=== PATIENT | male | born 1955 | race Caucasian/White ===

== ENCOUNTER 2019-10-22 08:39 | Day surgery (SDC) | payer MEDICARE, MEDICAID ==
[~2019-10-22] VITALS: Ht 175.3 cm; Wt 98.9 kg
[~2019-10-22 08:39] MED LIST: HYDR-3973 PO; LAMO200T10 PO; LITH150C8 PO; LITH300C PO; OMEP-50 PO; TRAZ-256 PO; albuterol 2.5 MG/3 ML nebule NEB ONE; clindamycin-Cleocin 900mg/D5W 50 ML IV ONE; famotidine 20mg tablet PO ONE; ringers solution, lacted 1,000 ML IV SCH
[2019-10-22 08:50] VITALS: BP 119/80
[2019-10-22 10:04] LABS: BASOPHILS % (AUTO) 0.1 % (0-1); EOSINOPHILS # (AUTO) 0.3 X10'3 (0-0.9); EOSINOPHILS % (AUTO) 2.8 % (0-6); LYMPHOCYTES # (AUTO) 4.1 X10'3 (1.1-4.8); LYMPHOCYTES % (AUTO) 43.1 % (21-51); MEAN CORPUSCULAR HEMOGLOBIN 30.4 PG (27.0-31.0); MEAN CORPUSCULAR HGB CONC 34.2 g/dL (33.0-36.5); MEAN CORPUSCULAR VOLUME 88.8 FL (78-98); MEAN PLATELET VOLUME 9.5 FL (7.4-10.4); MONOCYTES # (AUTO) 0.6 X10'3 (0-0.9); NEUTROPHILS # (AUTO) 4.6 X10'3 (1.8-7.7); PRE OP HEMOGLOBIN 15.4 g/dL (14.0-17.9); PRE OP PLATELET COUNT 139 X10'3 (140-440); RED BLOOD COUNT 5.07 X10'6 (4.70-6.10); RED CELL DISTRIBUTION WIDTH 14.5 % (11.5-14.5)
[2019-10-22 10:32] LABS: ALBUMIN 3.7 G/DL (3.4-5.0); ALBUMIN/GLOBULIN RATIO 1.1 (1.1-1.5); ALKALINE PHOSPHATASE 73 IU/L (46-116); BLOOD UREA NITROGEN 5 MG/DL (7-18); BUN/CREATININE RATIO 6.1 (5.4-32.0); CALCIUM 8.9 MG/DL (8.5-10.1); CHLORIDE 112 MMOL/L (99-107); CREATININE 0.82 MG/DL (0.60-1.10); PRE OP ALT 58 U/L (30-65); PRE OP AST 24 U/L (10-37); PRE OP BILIRUB, TOTAL 0.5 MG/DL (0.0-1.0); PRE OP GLUCOSE 111 MG/DL (70-104); TOTAL CARBON DIOXIDE 24.3 MMOL/L (24-32); eGFR > 90 ML/MIN
[2019-10-22 10:34] LABS: PRE OP ANION GAP 8 (8-16); PRE OP SODIUM 144 MMOL/L (135-145)
[2019-10-22] MEDS ORDERED: BUPIVAcaine/PF 2.5mg/ml (0.25%) 10ml vial ONE (12:54)
--- NOTE | 2019-10-22 13:05 | NUR ---
PT DECIDED TO LEAVE AND RESCHEDULE SURGERY DUE TO DELAY IN START TIME STATING HIS CANNOT DRIVE IN THE DARK.
== END 2019-10-22 13:08 | disposition home or self-care (01) ==
LOC: PAS 08:39
PROVIDERS: ATTEND Orthopaedic Surgery
DX: G56.02 Carpal tunnel syndrome, left upper limb (principal); Z53.8 Procedure and treatment not carried out for other reasons; Z88.0 Allergy status to penicillin
CPT/HCPCS: 36415; 80053; 85025; J3490; J7120

== ENCOUNTER 2020-08-20 12:30 | Day surgery (SDC) | payer MEDICARE, MEDICAID ==
[2020-08-20] VITALS (11 sets, daily range): BP systolic 113–144; BP diastolic 64–89
[~2020-08-20] VITALS: Ht 175.3 cm; Wt 95.7 kg
[~2020-08-20 12:30] MED LIST changes: -albuterol 2.5 MG/3 ML nebule NEB ONE; -clindamycin-Cleocin 900mg/D5W 50 ML IV ONE; -famotidine 20mg tablet PO ONE; -ringers solution, lacted 1,000 ML IV SCH
[2020-08-20] MEDS ORDERED: nitroGLYCERIN 0.4mg SUBLingual tab SL PRN (13:05)
[2020-08-20] MEDS ORDERED: LORazepam 0.5 MG tablet PO PRN (13:05)
[2020-08-20] MEDS ORDERED: normal saline 1,000 ML IV SCH (13:05)
[2020-08-20] MEDS ORDERED: diphenhydrAMINE 25mg capsule PO PRN (13:05)
[2020-08-20] MEDS ORDERED: CYCL-1 PO (13:11)
[2020-08-20] MEDS ORDERED: ALBU18HF2 (13:11)
[2020-08-20] MEDS ORDERED: ASPI-611 PO (13:13)
[2020-08-20] MEDS ORDERED: TRAZ-251 PO (13:13)
[2020-08-20] MEDS ORDERED: FEXO180T94 PO (13:13)
[2020-08-20] MEDS ORDERED: iohexol 350 MG/ML 50ML vial IV ONE (13:30)
[2020-08-20] MEDS ORDERED: iohexol 350MG/ML 100ml bottle IV ONE (13:30)
[2020-08-20] MEDS ORDERED: fentaNYL/PF 50MCG/1 ML 2ML syringe ONE (13:31)
[2020-08-20] MEDS ORDERED: LIDOcaine 1% (10mg/ml)w/preservative injection 20ml MDV ONE (13:31)
[2020-08-20] MEDS ORDERED: midazolam 2 mg/2 ml injection ONE ×2 (13:31→13:59)
[2020-08-20] MEDS ORDERED: proCHLORperazine 10 MG/2 ml inj ONE (13:57)
[2020-08-20] MEDS ORDERED: HYDROcodone/acetaminophen 10/325mg tab PO PRN (14:35)
[2020-08-20] MEDS ORDERED: ondansetron/PF 4mg/2ml inj IV PRN (14:35)
[2020-08-20] MEDS ORDERED: OXAZEpam 15mg capsule PO PRN (14:35)
[2020-08-20] MEDS ORDERED: proCHLORperazine 10 MG/2 ml inj IV PRN (14:35)
[2020-08-20] MEDS ORDERED: acetaminophen 325mg tablet PO PRN (14:35)
[2020-08-20] MEDS ORDERED: HYDROcodone/acetaminophen 5mg/325mg tablet PO PRN (14:35)
== END 2020-08-20 20:13 | disposition home or self-care (01) ==
LOC: SSTAY O 12:30
PROVIDERS: ATTEND Internal Medicine Cardiovascular Disease
DX: R94.39 Abnormal result of other cardiovascular function study (principal); I25.10 Atherosclerotic heart disease of native coronary artery without angina pectoris; I25.82 Chronic total occlusion of coronary artery; I25.2 Old myocardial infarction; I10 Essential (primary) hypertension; E78.5 Hyperlipidemia, unspecified; M54.30 Sciatica, unspecified side; F17.210 Nicotine dependence, cigarettes, uncomplicated; F31.9 Bipolar disorder, unspecified; Z88.0 Allergy status to penicillin; Z79.899 Other long term (current) drug therapy; Z98.890 Other specified postprocedural states; Z86.010 Personal history of colon polyps
CPT/HCPCS: 93458; 99152; C1760; C1769; J0780; J1644; J2001; J2250; J3010; J7030; Q0163; Q9967; A4620; A6258

== ENCOUNTER 2024-07-24 11:06 | Day surgery (SDC) | payer MEDICARE, MEDICAID ==
[2024-07-17 14:12] LABS: BASOPHILS % (AUTO) 0.3 % (0-1); EOSINOPHILS # (AUTO) 0.3 X10'3 (0-0.9); EOSINOPHILS % (AUTO) 2.9 % (0-6); LYMPHOCYTES # (AUTO) 4.3 X10'3 (1.1-4.8); LYMPHOCYTES % (AUTO) 41.6 % (21-51); MEAN CORPUSCULAR HEMOGLOBIN 31.1 PG (27.0-31.0); MEAN CORPUSCULAR HGB CONC 33.7 g/dL (33.0-36.5); MEAN CORPUSCULAR VOLUME 92.3 FL (78-98); MEAN PLATELET VOLUME 9.6 FL (7.4-10.4); MONOCYTES # (AUTO) 0.7 X10'3 (0-0.9); MONOCYTES % (AUTO) 6.7 % (2-12); NEUTROPHILS % (AUTO) 48.5 % (42-75); PRE OP HEMATOCRIT 45.6 % (42.0-52.0); PRE OP HEMOGLOBIN 15.4 g/dL (14.0-17.9); PRE OP PLATELET COUNT 171 X10'3 (140-440); PRE OP WHITE BLOOD COUNT 10.4 10'3 (4.8-10.8); RED BLOOD COUNT 4.94 X10'6 (4.70-6.10); RED CELL DISTRIBUTION WIDTH 14.6 % (11.5-14.5)
[2024-07-17 14:27] LABS: ALBUMIN 3.9 G/DL (3.4-5.0); ALBUMIN/GLOBULIN RATIO 1.1 (1.1-1.5); ALKALINE PHOSPHATASE 68 IU/L (46-116); BLOOD UREA NITROGEN 14 MG/DL (7-18); BUN/CREATININE RATIO 11.1 (10.0-20.0); CALCIUM 9.2 MG/DL (8.5-10.1); CHLORIDE 108 MMOL/L (99-107); CREATININE 1.26 MG/DL (0.60-1.10); PRE OP ALT 33 U/L (30-65); PRE OP ANION GAP 7 (8-16); PRE OP AST 18 U/L (10-37); PRE OP BILIRUB, TOTAL 0.5 MG/DL (0.0-1.0); PRE OP GLUCOSE 93 MG/DL (70-104); PRE OP POTASSIUM 4.3 MMOL/L (3.4-5.1); PRE OP SODIUM 139 MMOL/L (135-145); TOTAL CARBON DIOXIDE 23.8 MMOL/L (24-32); TOTAL PROTEIN 7.4 G/DL (6.4-8.2); eGFR 57 ML/MIN
[~2024-07-24] VITALS: Ht 175.3 cm; Wt 97.1 kg
[2024-07-24] VITALS (11 sets, daily range): BP systolic 103–133; BP diastolic 63–99; PULSE 64–75; RESP 15–19; TEMP 98.1; O2SAT 93–97
[2024-07-24] MEDS: clindamycin-Cleocin 900mg/D5W 50 ML IV ONE (05:30)
[~2024-07-24 11:06] MED LIST changes: +CELE-127 PO; +FLO0.4C PO; -HYDR-3973 PO; -LITH150C8 PO; -OMEP-50 PO; +SOFO1TAB PO; -TRAZ-256 PO; +ceFAZolin 2gm in dextrose, iso 50 ML IV ONE; +enalaprilat dihydrate 2.5mg/2ml vial IV PRN; +labetalol 20mg/4ml (5mg/ml) syringe IV PRN; +meperidine/PF 25mg/ml syringe IV PRN; +morphine 2 MG/ML inj. syringe IV PRN; +morphine 4 MG/ML inj SYRINge IV PRN; +ondansetron/PF 4mg/2ml inj IV PRN; +proCHLORperazine 10 MG/2 ml inj IV PRN; +ringers solution, lacted 1,000 ML IV SCH
[2024-07-24] MEDS: famotidine 20mg tablet PO ONE (11:54)
[2024-07-24] MEDS: ringers solution, lacted 1,000 ML IV SCH (11:58)
[2024-07-24] MEDS ORDERED: tamsulosin 0.4mg capsule PO ONE (13:15)
[2024-07-24] MEDS ORDERED: propofol inj 20 ML IV ONE (13:19)
[2024-07-24] MEDS ORDERED: LIDOcaine 2% (20mg/ml) 5ml vial ONE (13:19)
[2024-07-24] MEDS ORDERED: fentaNYL/PF 50MCG/1 ML 2ML syringe ONE (13:21)
[2024-07-24] MEDS ORDERED: midazolam 1 mg/ML 2ml injection ONE (13:21)
[2024-07-24] MEDS: tamsulosin 0.4mg capsule PO SCH (13:36)
[2024-07-24] MEDS ORDERED: sevoflurane 250ml liquid IH ONE (13:52)
[2024-07-24] MEDS ORDERED: rocuronium 10mg/ml inj IV ONE (13:56)
[2024-07-24] MEDS ORDERED: meperidine/PF 50mg/ml syringe ONE (14:14)
[2024-07-24] MEDS: HYDROcodone/acetaminophen 5mg/325mg tablet PO PRN (16:24)
== END 2024-07-24 16:29 | disposition home or self-care (01) ==
LOC: PAS 11:06
PROVIDERS: ATTEND Surgery
DX: K40.90 Unilateral inguinal hernia, without obstruction or gangrene, not specified as recurrent (principal); K42.9 Umbilical hernia without obstruction or gangrene; D17.6 Benign lipomatous neoplasm of spermatic cord; R59.1 Generalized enlarged lymph nodes; J44.9 Chronic obstructive pulmonary disease, unspecified; K21.9 Gastro-esophageal reflux disease without esophagitis; F31.9 Bipolar disorder, unspecified; Z79.899 Other long term (current) drug therapy; Z96.653 Presence of artificial knee joint, bilateral; Z98.890 Other specified postprocedural states; Z88.0 Allergy status to penicillin
CPT/HCPCS: 36415; 38570; 49591; 49650; 71046; 80053; 82948; 85025; A4215; A4618; C1781; J2003; J2175; J2250; J2704; J3010; J3490; J7030; J7120; Z7506; Z7508; Z7512; Z7610; J1100; J1885; J2405